=== PATIENT | male | born 1980 | race Caucasian/White ===

== ENCOUNTER 2022-02-02 08:38 | Emergency (ER) | payer OTHER ==
[2022-02-02] MEDS ORDERED: Adacel Vial IM ONE ×2 (08:53→09:16)
[2022-02-02] MEDS ORDERED: TYLENOL EXTRA STRENGTH 500 MG PO PRN (09:03)
[2022-02-02 09:07] VITALS: BP 196/115; PULSE 83; O2SAT 98
[2022-02-02] MEDS ORDERED: TYLENOL EXTRA STRENGTH 500 MG ONE (09:11)
[2022-02-02 09:44] LABS: ALKALINE PHOSPHATASE 86 U/L (38-126); AMYLASE 120 U/L (30-110); ANION GAP 8.8 MEQ/L (5-15); BLOOD UREA NITROGEN 11 mg/dL (9-20); CHLORIDE 104 mmol/L (98-107); Calcium 8.2 mg/dL (8.4-10.2); Carbon Dioxide 28 mmol/L (22-30); Creatinine 1 0.86 mg/dL (0.66-1.25); EST GLOMERULAR FILTRATION RATE > 60.0 ML/MIN; Glucose 108 mg/dL (74-106); LIPASE 322 U/L (23-300); Potassium 4.1 mmol/L (3.5-5.1); SGOT/AST 27 U/L (17-59); SGPT/ALT 32 U/L (0-50); SODIUM 137 mmol/L (137-145); Total Protein 7.2 g/dL (6.3-8.2)
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
[2022-02-02 10:02] LABS: Absolute Neutrophil Ct (ANC) 4.88 x10^3/uL (1.4-6.9); Basophil (Absolute #) 0.06 x10^3/uL (0-0.4); Eosinophil % 5.6 % (0.00-5.0); Eosinophil (Absolute #) 0.43 x10^3/uL (0-0.5); Hematocrit 44.4 % (42-50); Hemoglobin 15.1 g/dL (12.5-18.0); Lymphocyte (Absolute #) 1.55 x10^3/uL (1.0-4.6); Lymphocytes % 20.3 % (24.0-44.0); Mean Cell Volume 88.4 fL (78-100); Mean Corpuscular Hemoglobin 30.1 pg (26-32); Mean Platelet Volume 8.6 fL (7.5-11.0); Monocyte (Absolute #) 0.68 x10^3/uL (0.0-1.3); Monocytes % 8.9 % (0.0-12.0); Neutrophil % 63.7 % (36.0-66.0); Platelet Count 272 x10^3/uL (150-450); Red Blood Count 5.02 x10^6/uL (4.1-5.6); Red Cell Distribution Width 12.8 % (11.5-14.0); White Blood Count 7.7 x10^3/uL (4.0-10.5)
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
== END 2022-02-02 10:44 | disposition home or self-care (01) ==
LOC: ED 08:38
DX: S80.02XA Contusion of left knee, initial encounter (principal); S80.12XA Contusion of left lower leg, initial encounter; V53.5XXA Driver of pick-up truck or van injured in collision with car, pick-up truck or van in traffic accident, initial encounter; Y92.411 Interstate highway as the place of occurrence of the external cause; R51.9 Headache, unspecified; M25.562 Pain in left knee; Z28.310 Unvaccinated for COVID-19; Z79.891 Long term (current) use of opiate analgesic
CPT/HCPCS: 36415; 71045; 72040; 73560; 73590; 80053; 82150; 83690; 84484; 85025; 90471; 90715; 93005; 99285; A9270-GY